=== PATIENT | female | born 1980 | race Caucasian/White ===

== ENCOUNTER 2017-05-05 01:17 | Emergency (ER) | payer OTHER ==
[~2017-05-05] VITALS: Ht 172.7 cm; Wt 113.5 kg
[~2017-05-05 01:17] MED LIST: DIPH25 PO; DSS100 PO; HALO5TAB23 PO; HYDR-3965 PO; LURA40 PO
[2017-05-05 02:48] VITALS: BP 144/70
[2017-05-05] MEDS ORDERED: BACITRACIN 0.9 GM PACKET OINTMENT TP ONE (03:00)
[2017-05-05] MEDS ORDERED: ACETAMINOPHEN 500 MG TABLET PO ONE (03:00)
== END 2017-05-05 03:30 | disposition home or self-care (01) ==
LOC: EMS 01:18
DX: S90.821A Blister (nonthermal), right foot, initial encounter (principal); I10 Essential (primary) hypertension; F17.200 Nicotine dependence, unspecified, uncomplicated; Z59.0 Homelessness; X58.XXXA Exposure to other specified factors, initial encounter; Y93.01 Activity, walking, marching and hiking; Y92.89 Other specified places as the place of occurrence of the external cause; Y99.8 Other external cause status
CPT/HCPCS: 99283; 99406

== ENCOUNTER 2017-06-12 19:33 | Emergency (ER) | payer OTHER ==
[~2017-06-12] VITALS: Ht 172.7 cm; Wt 112.0 kg
[~2017-06-12 19:33] MED LIST changes: -DIPH25 PO; -DSS100 PO; -HYDR-3965 PO
[2017-06-12] MEDS ORDERED: TRAZ-144 PO (19:43)
[2017-06-12] MEDS ORDERED: QUET25TA PO (19:43)
[2017-06-12] MEDS ORDERED: LORA0.5T2 PO (19:43)
[2017-06-12] MEDS ORDERED: LITH300T PO (19:43)
[2017-06-12 20:00] LABS: BASOPHILS % (AUTO) 0.5 % (0.0-2.0); EOSINOPHILS % (AUTO) 1.3 % (1.0-6.0); HEMATOCRIT 36.9 % (36-46); HEMOGLOBIN 12.5 g/dL (12.0-16.0); LYMPHOCYTES # (AUTO) 3.2 K/uL (1.0-4.8); LYMPHOCYTES % (AUTO) 26.7 % (22.0-44.0); MEAN CORPUSCULAR HEMOGLOBIN 29.6 pg (26.0-34.0); MEAN CORPUSCULAR HGB CONC 33.9 G/dL (31.0-37.0); MEAN CORPUSCULAR VOLUME 87 fL (80-100); MONOCYTES # (AUTO) 0.5 K/uL (0.1-1.0); MONOCYTES % (AUTO) 4.3 % (2.0-9.0); NEUTROPHILS # (AUTO) 8.2 K/uL (1.8-7.7); NEUTROPHILS % (AUTO) 67.2 % (40.0-70.0); PLATELET COUNT (AUTO) 255 K/uL (150-450); RED BLOOD CELL COUNT(AUTO) 4.23 MIL/uL (4.00-5.20); RED CELL DISTRIBUTION WIDTH 13.6 % (11.5-14.5)
[2017-06-12 20:15] LABS: ANION GAP 8 mmol/L (8-16); CALCIUM, TOTAL 8.9 mg/dL (8.8-10.5); CARBON DIOXIDE 26 mmol/L (22-29); CHLORIDE 100 mmol/L (98-107); CREATININE 0.93 mg/dL (0.60-1.30); GLOMERULAR FILTR. RATE CALC > 60 mL/min (>60); GLUCOSE,RANDOM 88 mg/dL (70-110); POTASSIUM 3.3 mmol/L (3.5-5.1); SODIUM SERUM 134 mmol/L (136-145); UREA NITROGEN, BLOOD 7 mg/dL (7-18)
[2017-06-12 20:20] LABS: ALANINE AMINOTRANSFERASE 48 U/L (12-78); ALBUMIN 3.7 g/dL (3.4-5.0); ALKALINE PHOSPHATASE 117 U/L (46-116); ASPARTATE AMINOTRANSFERASE 29 U/L (15-37); BILIRUBIN,TOTAL 0.4 mg/dL (0.1-1.0); TOTAL PROTEIN, SERUM 7.7 g/dL (6.4-8.2)
[2017-06-12 21:50] VITALS: BP 129/72
== END 2017-06-12 22:03 | disposition home or self-care (01) ==
LOC: EMS 19:34
DX: F25.9 Schizoaffective disorder, unspecified (principal); Z59.0 Homelessness
CPT/HCPCS: 36415; 80053; 80178; 84703; 85025; 99284; G0480

== ENCOUNTER 2018-10-01 14:20 | Emergency (ER) | payer OTHER ==
[~2018-10-01 14:20] MED LIST changes: -HALO5TAB23 PO; +LITH300T PO; +LORA0.5T2 PO; -LURA40 PO; +QUET25TA PO; +TRAZ-252 PO
[2018-10-01] MEDS ORDERED: TRAZ-220 PO (14:53)
[2018-10-01] MEDS ORDERED: QUET300T2 PO (14:53)
[2018-10-01] MEDS ORDERED: PALI3 PO (14:53)
[2018-10-01 14:59] LABS: BASOPHILS % (AUTO) 0.4 % (0.0-2.0); EOSINOPHILS % (AUTO) 3.1 % (1.0-6.0); HEMATOCRIT 38.6 % (36-46); HEMOGLOBIN 12.9 g/dL (12.0-16.0); LYMPHOCYTES # (AUTO) 2.2 K/uL (1.0-4.8); LYMPHOCYTES % (AUTO) 25.3 % (22.0-44.0); MEAN CORPUSCULAR HEMOGLOBIN 29.4 pg (26.0-34.0); MEAN CORPUSCULAR HGB CONC 33.4 G/dL (31.0-37.0); MEAN CORPUSCULAR VOLUME 88 fL (80-100); MONOCYTES # (AUTO) 0.4 K/uL (0.1-1.0); MONOCYTES % (AUTO) 4.7 % (2.0-9.0); NEUTROPHILS # (AUTO) 5.8 K/uL (1.8-7.7); NEUTROPHILS % (AUTO) 66.5 % (40.0-70.0); PLATELET COUNT (AUTO) 243 K/uL (150-450); RED BLOOD CELL COUNT(AUTO) 4.39 MIL/uL (4.00-5.20); RED CELL DISTRIBUTION WIDTH 13.4 % (11.5-14.5)
[2018-10-01 15:16] LABS: AMPHET/METH SCREEN,URINE NEGATIVE (NEGATIVE); BARBITURATE SCREEN, URINE NEGATIVE (NEGATIVE); BENZODIAZEPINES SCREEN,URINE NEGATIVE (NEGATIVE); CANNABINOID SCREEN,URINE NEGATIVE (NEGATIVE); COCAINE SCREEN,URINE NEGATIVE (NEGATIVE); METHADONE SCREEN, URINE NEGATIVE (NEGATIVE); OPIATE SCREEN,URINE NEGATIVE (NEGATIVE)
[2018-10-01 15:19] LABS: ANION GAP 8 mmol/L (8-16); CALCIUM, TOTAL 8.9 mg/dL (8.8-10.5); CARBON DIOXIDE 27 mmol/L (22-29); CHLORIDE 103 mmol/L (98-107); CREATININE 0.81 mg/dL (0.60-1.30); GLOMERULAR FILTR. RATE CALC > 60 mL/min (>60); GLUCOSE,RANDOM 94 mg/dL (70-110); POTASSIUM 3.5 mmol/L (3.5-5.1); SODIUM SERUM 138 mmol/L (136-145); UREA NITROGEN, BLOOD 7 mg/dL (7-18)
[2018-10-01 15:24] LABS: PHENCYCLIDINE SCREEN,URINE NEGATIVE (NEGATIVE)
[2018-10-01 15:29] LABS: ALANINE AMINOTRANSFERASE 28 U/L (12-78); ALBUMIN 3.4 g/dL (3.4-5.0); ALKALINE PHOSPHATASE 107 U/L (46-116); ASPARTATE AMINOTRANSFERASE 25 U/L (15-37); BILIRUBIN,TOTAL 0.3 mg/dL (0.1-1.0); HCG,QUANTITATIVE < 1 mIU/mL (0-6); TOTAL PROTEIN, SERUM 7.7 g/dL (6.4-8.2)
[2018-10-01 15:56] LABS: LITHIUM 0.36 mmol/L (0.60-1.20)
[2018-10-01 16:26] VITALS: BP 132/74
== END 2018-10-01 16:31 | disposition home or self-care (01) ==
LOC: EMS 14:28
DX: F25.9 Schizoaffective disorder, unspecified (principal); F31.9 Bipolar disorder, unspecified; F17.290 Nicotine dependence, other tobacco product, uncomplicated; Z59.0 Homelessness; Z79.899 Other long term (current) drug therapy
CPT/HCPCS: 36415; 80053; 80178; 80307; 81025; 84702; 85025; 99283; 99406; G0480

== ENCOUNTER 2018-10-03 21:22 | Emergency (ER) | payer OTHER ==
[~2018-10-03] VITALS: Ht 172.7 cm; Wt 111.4 kg
[~2018-10-03 21:22] MED LIST changes: -LORA0.5T2 PO; +PALI3 PO; -QUET25TA PO; +QUET300T2 PO; +TRAZ-220 PO; -TRAZ-252 PO
[2018-10-03 22:14] LABS: ANION GAP 9 mmol/L (8-16); CARBON DIOXIDE 25 mmol/L (22-29); CHLORIDE 103 mmol/L (98-107); GLOMERULAR FILTR. RATE CALC > 60 mL/min (>60); GLUCOSE,RANDOM 94 mg/dL (70-110); POTASSIUM 3.5 mmol/L (3.5-5.1); SODIUM SERUM 137 mmol/L (136-145); UREA NITROGEN, BLOOD 9 mg/dL (7-18)
[2018-10-03] MEDS ORDERED: HALOPERIDOL LACTATE 5 MG/ML VIAL IM ONE (22:15)
[2018-10-03] MEDS ORDERED: DiphenhydrAMINE HCL 50 MG/ML VIAL IM ONE (22:15)
[2018-10-03] MEDS ORDERED: LORazepam 2 MG/ML VIAL IM ONE (22:15)
[2018-10-03 22:16] LABS: BASOPHILS % (AUTO) 0.4 % (0.0-2.0); EOSINOPHILS % (AUTO) 2.1 % (1.0-6.0); HEMATOCRIT 36.5 % (36-46); HEMOGLOBIN 12.2 g/dL (12.0-16.0); LYMPHOCYTES # (AUTO) 2.4 K/uL (1.0-4.8); LYMPHOCYTES % (AUTO) 31.5 % (22.0-44.0); MEAN CORPUSCULAR HEMOGLOBIN 28.8 pg (26.0-34.0); MEAN CORPUSCULAR HGB CONC 33.4 G/dL (31.0-37.0); MEAN CORPUSCULAR VOLUME 86 fL (80-100); MONOCYTES # (AUTO) 0.4 K/uL (0.1-1.0); MONOCYTES % (AUTO) 5.5 % (2.0-9.0); NEUTROPHILS # (AUTO) 4.7 K/uL (1.8-7.7); NEUTROPHILS % (AUTO) 60.5 % (40.0-70.0); PLATELET COUNT (AUTO) 265 K/uL (150-450); RED BLOOD CELL COUNT(AUTO) 4.23 MIL/uL (4.00-5.20); RED CELL DISTRIBUTION WIDTH 13.4 % (11.5-14.5)
[2018-10-03 22:18] LABS: ALANINE AMINOTRANSFERASE 26 U/L (12-78); ALBUMIN 3.4 g/dL (3.4-5.0); ALKALINE PHOSPHATASE 95 U/L (46-116); ASPARTATE AMINOTRANSFERASE 23 U/L (15-37); BILIRUBIN,TOTAL 0.5 mg/dL (0.1-1.0); TOTAL PROTEIN, SERUM 7.3 g/dL (6.4-8.2)
[2018-10-03 22:45] LABS: AMPHET/METH SCREEN,URINE POSITIVE (NEGATIVE); BARBITURATE SCREEN, URINE NEGATIVE (NEGATIVE); BENZODIAZEPINES SCREEN,URINE NEGATIVE (NEGATIVE); CANNABINOID SCREEN,URINE NEGATIVE (NEGATIVE); COCAINE SCREEN,URINE NEGATIVE (NEGATIVE); METHADONE SCREEN, URINE NEGATIVE (NEGATIVE); OPIATE SCREEN,URINE NEGATIVE (NEGATIVE); PHENCYCLIDINE SCREEN,URINE NEGATIVE (NEGATIVE)
[2018-10-03 22:51] LABS: LITHIUM 1.03 mmol/L (0.60-1.20)
[2018-10-03 23:46] VITALS: BP 127/78
== END 2018-10-03 23:50 | disposition home or self-care (01) ==
LOC: EMS 21:22
DX: F25.0 Schizoaffective disorder, bipolar type (principal); F15.10 Other stimulant abuse, uncomplicated; Z79.899 Other long term (current) drug therapy
CPT/HCPCS: 36415; 80053; 80178; 80307; 85025; 96372; 99284; G0480; J1200; J1630; J2060

== ENCOUNTER 2018-10-12 02:20 | Emergency (ER) | payer OTHER ==
[~2018-10-12] VITALS: Ht 172.7 cm; Wt 115.9 kg
[2018-10-12 04:18] VITALS: BP 135/77
== END 2018-10-12 04:32 | disposition home or self-care (01) ==
LOC: EMS 02:23
DX: S96.912A Strain of unspecified muscle and tendon at ankle and foot level, left foot, initial encounter (principal); F31.9 Bipolar disorder, unspecified; F20.9 Schizophrenia, unspecified; F17.200 Nicotine dependence, unspecified, uncomplicated; Z59.0 Homelessness; X58.XXXA Exposure to other specified factors, initial encounter; Y93.89 Activity, other specified; Y92.89 Other specified places as the place of occurrence of the external cause; Y99.8 Other external cause status

== ENCOUNTER 2018-10-19 17:03 | Emergency (ER) | payer OTHER ==
[~2018-10-19] VITALS: Ht 172.7 cm; Wt 117.3 kg
[2018-10-19 18:11] LABS: BASOPHILS % (AUTO) 0.5 % (0.0-2.0); EOSINOPHILS % (AUTO) 1.6 % (1.0-6.0); HEMATOCRIT 37.5 % (36-46); HEMOGLOBIN 12.6 g/dL (12.0-16.0); LYMPHOCYTES # (AUTO) 3.3 K/uL (1.0-4.8); LYMPHOCYTES % (AUTO) 34.8 % (22.0-44.0); MEAN CORPUSCULAR HEMOGLOBIN 29.6 pg (26.0-34.0); MEAN CORPUSCULAR HGB CONC 33.5 G/dL (31.0-37.0); MEAN CORPUSCULAR VOLUME 88 fL (80-100); MONOCYTES # (AUTO) 0.5 K/uL (0.1-1.0); MONOCYTES % (AUTO) 4.9 % (2.0-9.0); NEUTROPHILS # (AUTO) 5.5 K/uL (1.8-7.7); NEUTROPHILS % (AUTO) 58.2 % (40.0-70.0); PLATELET COUNT (AUTO) 242 K/uL (150-450); RED BLOOD CELL COUNT(AUTO) 4.25 MIL/uL (4.00-5.20); RED CELL DISTRIBUTION WIDTH 13.3 % (11.5-14.5)
[2018-10-19 18:21] LABS: ANION GAP 8 mmol/L (8-16); CALCIUM, TOTAL 8.8 mg/dL (8.8-10.5); CARBON DIOXIDE 26 mmol/L (22-29); CHLORIDE 103 mmol/L (98-107); CREATININE 0.79 mg/dL (0.60-1.30); GLOMERULAR FILTR. RATE CALC > 60 mL/min (>60); GLUCOSE,RANDOM 72 mg/dL (70-110); POTASSIUM 3.4 mmol/L (3.5-5.1); SODIUM SERUM 137 mmol/L (136-145); UREA NITROGEN, BLOOD 6 mg/dL (7-18)
[2018-10-19 18:30] LABS: ALANINE AMINOTRANSFERASE 41 U/L (12-78); ALBUMIN 3.5 g/dL (3.4-5.0); ALKALINE PHOSPHATASE 104 U/L (46-116); ASPARTATE AMINOTRANSFERASE 29 U/L (15-37); BILIRUBIN,TOTAL 0.3 mg/dL (0.1-1.0); TOTAL PROTEIN, SERUM 7.3 g/dL (6.4-8.2)
[2018-10-19 18:31] LABS: LITHIUM < 0.20 mmol/L (0.60-1.20)
[2018-10-19 18:42] LABS: AMPHET/METH SCREEN,URINE NEGATIVE (NEGATIVE); BARBITURATE SCREEN, URINE NEGATIVE (NEGATIVE); BENZODIAZEPINES SCREEN,URINE NEGATIVE (NEGATIVE); CANNABINOID SCREEN,URINE POSITIVE (NEGATIVE); COCAINE SCREEN,URINE NEGATIVE (NEGATIVE); METHADONE SCREEN, URINE NEGATIVE (NEGATIVE); OPIATE SCREEN,URINE NEGATIVE (NEGATIVE)
[2018-10-19 18:50] VITALS: BP 135/86
[2018-10-19 18:54] LABS: PHENCYCLIDINE SCREEN,URINE NEGATIVE (NEGATIVE)
== END 2018-10-19 20:15 | disposition home or self-care (01) ==
LOC: EMS 17:04
DX: F25.9 Schizoaffective disorder, unspecified (principal); F31.9 Bipolar disorder, unspecified; F20.9 Schizophrenia, unspecified; Z59.0 Homelessness; Z79.899 Other long term (current) drug therapy
CPT/HCPCS: 36415; 80053; 80178; 80307; 85025; 99284; G0480

== ENCOUNTER 2018-10-20 09:44 | Emergency (ER) | payer OTHER ==
[~2018-10-20] VITALS: Ht 172.7 cm; Wt 117.3 kg
[2018-10-20 10:17] LABS: AMPHET/METH SCREEN,URINE POSITIVE (NEGATIVE); BARBITURATE SCREEN, URINE NEGATIVE (NEGATIVE); BENZODIAZEPINES SCREEN,URINE NEGATIVE (NEGATIVE); CANNABINOID SCREEN,URINE POSITIVE (NEGATIVE); COCAINE SCREEN,URINE NEGATIVE (NEGATIVE); METHADONE SCREEN, URINE NEGATIVE (NEGATIVE); OPIATE SCREEN,URINE NEGATIVE (NEGATIVE); PHENCYCLIDINE SCREEN,URINE NEGATIVE (NEGATIVE)
[2018-10-20 11:30] VITALS: BP 128/76
== END 2018-10-20 11:33 | disposition home or self-care (01) ==
LOC: EMS 09:46
DX: F25.9 Schizoaffective disorder, unspecified (principal); F31.9 Bipolar disorder, unspecified; Z79.899 Other long term (current) drug therapy

== ENCOUNTER 2018-12-22 08:37 | Inpatient (IN) | payer MEDICAID, OTHER ==
[~2018-12-22] VITALS: Ht 172.7 cm; Wt 108.0 kg
[~2018-12-22 08:37] MED LIST changes: -TRAZ-220 PO
[2018-12-22 10:35] LABS: BASOPHILS % (AUTO) 0.3 % (0.0-2.0); EOSINOPHILS % (AUTO) 2.1 % (1.0-6.0); HEMATOCRIT 40.2 % (36-46); HEMOGLOBIN 13.3 g/dL (12.0-16.0); LYMPHOCYTES # (AUTO) 2.7 K/uL (1.0-4.8); LYMPHOCYTES % (AUTO) 27.4 % (22.0-44.0); MEAN CORPUSCULAR HGB CONC 33.1 G/dL (31.0-37.0); MEAN CORPUSCULAR VOLUME 88 fL (80-100); MONOCYTES # (AUTO) 0.6 K/uL (0.1-1.0); MONOCYTES % (AUTO) 5.8 % (2.0-9.0); NEUTROPHILS # (AUTO) 6.3 K/uL (1.8-7.7); NEUTROPHILS % (AUTO) 64.4 % (40.0-70.0); PLATELET COUNT (AUTO) 251 K/uL (150-450); RED BLOOD CELL COUNT(AUTO) 4.59 MIL/uL (4.00-5.20); RED CELL DISTRIBUTION WIDTH 14.1 % (11.5-14.5)
[2018-12-22] MEDS ORDERED: LORazepam 2 MG TABLET PO ONE (10:45)
[2018-12-22 10:47] LABS: ANION GAP 13 mmol/L (8-16); CALCIUM, TOTAL 9.5 mg/dL (8.8-10.5); CARBON DIOXIDE 23 mmol/L (22-29); CHLORIDE 103 mmol/L (98-107); CREATININE 0.73 mg/dL (0.60-1.30); GLOMERULAR FILTR. RATE CALC > 60 mL/min (>60); GLUCOSE,RANDOM 86 mg/dL (70-110); POTASSIUM 3.9 mmol/L (3.5-5.1); SODIUM SERUM 139 mmol/L (136-145); UREA NITROGEN, BLOOD 8 mg/dL (7-18)
[2018-12-22] MEDS ORDERED: LORazepam 2 MG TABLET PO PRN (11:00)
[2018-12-22] MEDS ORDERED: ZOLPIDEM TARTRATE 10 MG TABLET PO PRN (11:00)
[2018-12-22] MEDS ORDERED: HALOPERIDOL 5 MG TABLET PO PRN (11:00)
[2018-12-22 11:01] LABS: AMPHET/METH SCREEN,URINE POSITIVE (NEGATIVE); BARBITURATE SCREEN, URINE NEGATIVE (NEGATIVE); BENZODIAZEPINES SCREEN,URINE NEGATIVE (NEGATIVE); CANNABINOID SCREEN,URINE POSITIVE (NEGATIVE); COCAINE SCREEN,URINE NEGATIVE (NEGATIVE); METHADONE SCREEN, URINE NEGATIVE (NEGATIVE); OPIATE SCREEN,URINE NEGATIVE (NEGATIVE); PHENCYCLIDINE SCREEN,URINE NEGATIVE (NEGATIVE)
[2018-12-22 11:09] LABS: APPEARANCE,URINE CLOUDY (CLEAR); BILIRUBIN,URINE NEGATIVE (NEGATIVE); GLUCOSE, URINE (UA) NEGATIVE (NEGATIVE); KETONES,URINE TRACE mg/dL (NEGATIVE); LEUKOCYTE ESTERASE ,URINE NEGATIVE (NEGATIVE); NITRATE,URINE NEGATIVE (NEGATIVE); OCCULT BLOOD,URINE NEGATIVE (NEGATIVE); PROTEIN,URINE NEGATIVE (NEGATIVE)
[2018-12-22 11:11] LABS: ALANINE AMINOTRANSFERASE 69 U/L (12-78); ALBUMIN 3.8 g/dL (3.4-5.0); ALKALINE PHOSPHATASE 106 U/L (46-116); ASPARTATE AMINOTRANSFERASE 44 U/L (15-37); BILIRUBIN,TOTAL 0.7 mg/dL (0.1-1.0); CREATINE KINASE, TOTAL ONLY 114 U/L (26-192); TOTAL PROTEIN, SERUM 7.7 g/dL (6.4-8.2)
[2018-12-22 11:24] LABS: BACTERIA,URINE Rare /HPF (None Seen); RBC,URINE 0-2 /HPF (0-2); SQUAMOUS EPITHELIAL CELL,UR Few /LPF (None Seen); WBC,URINE 0-2 /HPF (0-5)
[2018-12-22] MEDS ORDERED: LORazepam 2 MG/ML VIAL IM ONE (12:15)
[2018-12-22] MEDS ORDERED: HALOPERIDOL LACTATE 5 MG/ML VIAL IM ONE (12:15)
[2018-12-22] MEDS ORDERED: ACETAMINOPHEN 325 MG TABLET PO PRN ×2 (13:00→16:15)
[2018-12-22] MEDS ORDERED: 0.9% SODIUM CHLORIDE 10 ML SYRINGE IVP PRN (13:00)
[2018-12-22] MEDS ORDERED: LOPERAMIDE HCL 2 MG CAPSULE PO PRN (16:15)
[2018-12-22] MEDS ORDERED: MAGNESIUM HYDROXIDE SUSPENSION 30 ML UDCUP PO PRN (16:15)
[2018-12-22] MEDS ORDERED: MAG HYDROX/AL HYDROX/SIMETH ES 30 ML SUSPENSION UDCUP PO PRN (16:15)
[2018-12-22] MEDS ORDERED: PETROLATUM,WHITE 28 GM JELLY TP PRN (16:15)
[2018-12-22] MEDS ORDERED: GuaiFENesin/D-METHORPHAN [SUGAR-FREE] 200-20MG/10 ML SYRUP UDCUP PO PRN (16:15)
[2018-12-22] MEDS ORDERED: CloNIDine HCL 0.1 MG TABLET PO PRN (16:15)
[2018-12-22] MEDS ORDERED: DOCUSATE SODIUM 100 MG CAPSULE PO PRN (16:15)
[2018-12-22] MEDS ORDERED: ONDANSETRON HCL 4 MG TABLET PO PRN (16:15)
[2018-12-22] MEDS ORDERED: ALBUTEROL SULFATE HFA 90 MCG/PUFF 8 GM INHALER IH PRN (16:15)
[2018-12-22] MEDS ORDERED: IBUPROFEN 400 MG TABLET PO PRN (16:15)
[2018-12-22] MEDS ORDERED: NICOTINE 14 MG/24 HOUR PATCH TD PRN (16:15)
[2018-12-22] MEDS: PALIPERIDONE 6 MG ER TABLET PO SCH (21:50)
[2018-12-22] MEDS: LITHIUM CARBONATE 300 MG CAPSULE PO SCH (21:50)
[2018-12-23 06:50] LABS: THYROID STIMULATING HORMONE 2.31 uIU/mL (0.36-3.74)
[2018-12-23] MEDS: LITHIUM CARBONATE 300 MG CAPSULE PO SCH ×2 (11:08→17:58)
[2018-12-23] MEDS ORDERED: DiphenhydrAMINE HCL 25 MG CAPSULE PO ONE (13:45)
[2018-12-23 16:19] VITALS: BP 135/81
[2018-12-23] MEDS: ALOE VERA 100% 360 ML GEL TP SCH (17:58)
[2018-12-23] MEDS: PALIPERIDONE 6 MG ER TABLET PO SCH (21:16)
[2018-12-24] MEDS: LITHIUM CARBONATE 300 MG CAPSULE PO SCH ×2 (08:45→17:46)
[2018-12-24] MEDS: ALOE VERA 100% 360 ML GEL TP SCH ×2 (08:45→17:00)
[2018-12-24 08:50] VITALS: BP 130/89
[2018-12-24 16:36] VITALS: BP 142/86
[2018-12-24] MEDS: PALIPERIDONE 6 MG ER TABLET PO SCH (20:36)
[2018-12-25] MEDS: ALOE VERA 100% 360 ML GEL TP SCH ×2 (07:43→16:47)
[2018-12-25] MEDS: LITHIUM CARBONATE 300 MG CAPSULE PO SCH ×2 (07:44→16:47)
[2018-12-25 08:00] VITALS: BP 123/60
[2018-12-25 17:03] VITALS: BP 123/72
[2018-12-25] MEDS ORDERED: RisperiDONE MICROSPHERES 37.5 MG/2 ML SYRINGE IM SCH (18:00)
[2018-12-25] MEDS: PALIPERIDONE 6 MG ER TABLET PO SCH (20:34)
[2018-12-26 08:00] VITALS: BP 129/79
[2018-12-26] MEDS: LITHIUM CARBONATE 300 MG CAPSULE PO SCH ×2 (08:37→16:28)
[2018-12-26] MEDS: ALOE VERA 100% 360 ML GEL TP SCH ×2 (08:37→16:28)
[2018-12-26 16:43] VITALS: BP 130/81
[2018-12-26] MEDS: PALIPERIDONE 6 MG ER TABLET PO SCH (21:16)
[2018-12-27 09:22] VITALS: BP 166/101
[2018-12-27] MEDS: ALOE VERA 100% 360 ML GEL TP SCH (09:52)
[2018-12-27] MEDS: LITHIUM CARBONATE 300 MG CAPSULE PO SCH (09:52)
[2018-12-27] MEDS ORDERED: RISPC375 IM (10:45)
== END 2018-12-27 11:30 | disposition home or self-care (01) | DRG 750 ==
LOC: EMS 08:39 → 3EC 12-23 08:10 → EMS 12-23 08:34
PROVIDERS: ADMIT Psychiatry & Neurology Psychiatry; ATTEND Psychiatry & Neurology Psychiatry
DX: F25.0 Schizoaffective disorder, bipolar type (principal); R74.0 Nonspecific elevation of levels of transaminase and lactic acid dehydrogenase [LDH]; B19.20 Unspecified viral hepatitis C without hepatic coma; F19.10 Other psychoactive substance abuse, uncomplicated; L55.9 Sunburn, unspecified; F41.9 Anxiety disorder, unspecified; R45.87 Impulsiveness; Z91.19 Patient's noncompliance with other medical treatment and regimen
CPT/HCPCS: 84443; 93005; 96372; G0480; J1630; J2060; J2794

== ENCOUNTER 2020-02-19 09:54 | Inpatient (IN) | payer MEDICAID ==
[~2020-02-19] VITALS: Ht 172.7 cm; Wt 93.6 kg
[~2020-02-19 09:54] MED LIST changes: -PALI3 PO; +PALI3TAB14 PO; -QUET300T2 PO; +RISPC375 IM
[2020-02-19] MEDS ORDERED: HALOPERIDOL 5 MG TABLET PO PRN (10:15)
[2020-02-19] MEDS ORDERED: ZOLPIDEM TARTRATE 10 MG TABLET PO PRN (10:15)
[2020-02-19] MEDS ORDERED: PNEUMOCOCCAL VACCINE POLYVALENT 0.5 ML VIAL [PPSV23] IM ONE (15:00)
[2020-02-19] MEDS ORDERED: INFLUENZA VIRUS VACCINE QVS 2020-21 (6MO+)/PF 60 MCG/0.5 ML SYRINGE IM ONE (15:00)
[2020-02-19 16:03] VITALS: BP 137/90
[2020-02-20 00:30] VITALS: BP 132/83
[2020-02-20] MEDS ORDERED: BENZOCAINE/MENTHOL LOZENGE PO PRN (07:30)
[2020-02-20] MEDS ORDERED: OMEPRAZOLE 20 MG CAPSULE PO PRN (07:30)
[2020-02-20] MEDS ORDERED: MAGNESIUM HYDROXIDE SUSPENSION 30 ML UDCUP PO PRN (07:30)
[2020-02-20] MEDS ORDERED: DOCUSATE SODIUM 100 MG CAPSULE PO PRN (07:30)
[2020-02-20] MEDS ORDERED: LOPERAMIDE HCL 2 MG CAPSULE PO PRN (07:30)
[2020-02-20] MEDS ORDERED: BACITRACIN 28 GM OINTMENT TP PRN (07:30)
[2020-02-20] MEDS ORDERED: ONDANSETRON HCL 4 MG TABLET PO PRN (07:30)
[2020-02-20] MEDS ORDERED: MAG HYDROX/AL HYDROX/SIMETH ES 30 ML SUSPENSION UDCUP PO PRN (07:30)
[2020-02-20] MEDS ORDERED: IBUPROFEN 600 MG TABLET PO PRN (07:30)
[2020-02-20] MEDS ORDERED: ALBUTEROL SULFATE HFA 90 MCG/PUFF 8 GM INHALER IH PRN (07:30)
[2020-02-20] MEDS ORDERED: CloNIDine HCL 0.1 MG TABLET PO PRN (07:30)
[2020-02-20] MEDS ORDERED: PETROLATUM,WHITE 28 GM JELLY TP PRN (07:30)
[2020-02-20 08:04] VITALS: BP 124/63
[2020-02-20 08:18] LABS: BASOPHILS % (AUTO) 0.2 % (0.0-2.0); EOSINOPHILS % (AUTO) 2.7 % (1.0-6.0); HEMATOCRIT 39.5 % (36-46); HEMOGLOBIN 13.6 g/dL (12.0-16.0); LYMPHOCYTES # (AUTO) 2.6 K/uL (1.0-4.8); LYMPHOCYTES % (AUTO) 41.4 % (22.0-44.0); MEAN CORPUSCULAR HEMOGLOBIN 32.2 pg (26.0-34.0); MEAN CORPUSCULAR HGB CONC 34.5 G/dL (31.0-37.0); MEAN CORPUSCULAR VOLUME 93 fL (80-100); MONOCYTES # (AUTO) 0.4 K/uL (0.1-1.0); MONOCYTES % (AUTO) 5.9 % (2.0-9.0); NEUTROPHILS # (AUTO) 3.1 K/uL (1.8-7.7); NEUTROPHILS % (AUTO) 49.8 % (40.0-70.0); PLATELET COUNT (AUTO) 139 K/uL (150-450); RED BLOOD CELL COUNT(AUTO) 4.23 MIL/uL (4.00-5.20); RED CELL DISTRIBUTION WIDTH 11.9 % (11.5-14.5)
[2020-02-20 08:36] LABS: HEMOGLOBIN A1C 4.8 % (3.8-5.6)
[2020-02-20 08:49] LABS: ALANINE AMINOTRANSFERASE 26 U/L (12-78); ALBUMIN 3.6 g/dL (3.4-5.0); ALKALINE PHOSPHATASE 55 U/L (46-116); ANION GAP 9 mmol/L (8-16); ASPARTATE AMINOTRANSFERASE 31 U/L (15-37); BILIRUBIN,TOTAL 0.4 mg/dL (0.1-1.0); CALCIUM, TOTAL 8.7 mg/dL (8.8-10.5); CARBON DIOXIDE 26 mmol/L (22-29); CHLORIDE 103 mmol/L (98-107); CHOL/HDL RATIO 3.2 (3.9-5.7); CHOLESTEROL 171 mg/dL (131-200); CREATININE 0.66 mg/dL (0.60-1.30); FREE T4 (FREE THYROXINE) 1.23 ng/dL (0.76-1.46); GLOMERULAR FILTR. RATE CALC > 60 mL/min (>60); GLUCOSE,RANDOM 93 mg/dL (70-110); HCG,QUANTITATIVE < 1 mIU/mL (0-6); HDL CHOLESTEROL 54 mg/dL (40-60); LDL CHOL (CALC.) 95 mg/dL (0-130); POTASSIUM 3.9 mmol/L (3.5-5.1); SODIUM SERUM 138 mmol/L (136-145); TOTAL PROTEIN, SERUM 6.7 g/dL (6.4-8.2); TRIGLYCERIDES 110 mg/dL (15-150); UREA NITROGEN, BLOOD 7 mg/dL (7-18)
[2020-02-20] MEDS: NICOTINE POLACRILEX 2 MG LOZENGE PO PRN ×3 (09:13→18:23)
[2020-02-20] MEDS: BACITRACIN 28 GM OINTMENT TP SCH ×2 (09:14→17:37)
[2020-02-20] MEDS: LORazepam 2 MG TABLET PO PRN (10:30)
[2020-02-20 16:28] VITALS: BP 112/71
[2020-02-20] MEDS: RisperiDONE 3 MG TABLET PO SCH (17:37)
[2020-02-21 00:53] VITALS: BP 119/74
[2020-02-21] MEDS: NICOTINE POLACRILEX 2 MG LOZENGE PO PRN ×4 (04:11→18:11)
[2020-02-21] MEDS: BACITRACIN 28 GM OINTMENT TP SCH ×2 (08:07→16:01)
[2020-02-21] MEDS: RisperiDONE 3 MG TABLET PO SCH ×2 (08:07→16:00)
[2020-02-21 08:16] VITALS: BP 143/92
[2020-02-21] MEDS: LORazepam 2 MG TABLET PO PRN (16:00)
[2020-02-21 16:07] VITALS: BP 138/79
[2020-02-22 04:13] VITALS: BP 115/91
[2020-02-22] MEDS: NICOTINE POLACRILEX 2 MG LOZENGE PO PRN ×4 (05:39→18:20)
[2020-02-22] MEDS: RisperiDONE 3 MG TABLET PO SCH ×2 (08:01→16:11)
[2020-02-22] MEDS: LORazepam 2 MG TABLET PO PRN (08:01)
[2020-02-22] MEDS: BACITRACIN 28 GM OINTMENT TP SCH ×2 (08:03→16:11)
[2020-02-22 08:34] VITALS: BP 114/64
[2020-02-22 16:09] VITALS: BP 108/66
[2020-02-23 00:12] VITALS: BP 113/64
[2020-02-23] MEDS: NICOTINE POLACRILEX 2 MG LOZENGE PO PRN ×3 (06:37→14:55)
[2020-02-23] MEDS: RisperiDONE 3 MG TABLET PO SCH ×2 (08:08→16:13)
[2020-02-23 08:14] VITALS: BP 116/78
[2020-02-23] MEDS: BACITRACIN 28 GM OINTMENT TP SCH ×2 (09:00→16:15)
[2020-02-23] MEDS: ACETAMINOPHEN 325 MG TABLET PO PRN (13:25)
[2020-02-23 16:25] VITALS: BP 132/67
[2020-02-23] MEDS: LORazepam 2 MG TABLET PO PRN (19:40)
[2020-02-24 00:27] VITALS: BP 121/69
[2020-02-24] MEDS: NICOTINE POLACRILEX 2 MG LOZENGE PO PRN ×3 (04:04→14:24)
[2020-02-24 07:44] VITALS: BP 134/97
[2020-02-24 08:01] VITALS: BP 134/97
[2020-02-24] MEDS: RisperiDONE 3 MG TABLET PO SCH ×2 (08:02→16:12)
[2020-02-24] MEDS: BACITRACIN 28 GM OINTMENT TP SCH ×2 (08:02→16:17)
[2020-02-24] MEDS: LORazepam 2 MG TABLET PO PRN ×2 (08:02→16:12)
[2020-02-24 16:05] VITALS: BP 119/77
[2020-02-25 00:50] VITALS: BP 140/94
[2020-02-25] MEDS: NICOTINE POLACRILEX 2 MG LOZENGE PO PRN ×3 (05:09→16:04)
[2020-02-25 08:01] VITALS: BP 124/75
[2020-02-25] MEDS: BACITRACIN 28 GM OINTMENT TP SCH ×2 (09:00→16:06)
[2020-02-25] MEDS: RisperiDONE 3 MG TABLET PO SCH ×2 (09:00→16:04)
[2020-02-25] MEDS: LORazepam 2 MG TABLET PO PRN ×2 (11:55→16:04)
[2020-02-25 16:05] VITALS: BP 109/79
[2020-02-26 00:04] VITALS: BP 100/58
[2020-02-26] MEDS: NICOTINE POLACRILEX 2 MG LOZENGE PO PRN ×3 (04:15→13:31)
[2020-02-26 08:01] VITALS: BP 139/78
[2020-02-26] MEDS: ACETAMINOPHEN 325 MG TABLET PO PRN (08:32)
[2020-02-26] MEDS: RisperiDONE 3 MG TABLET PO SCH ×2 (08:32→16:27)
[2020-02-26] MEDS: LORazepam 2 MG TABLET PO PRN ×2 (09:08→16:51)
[2020-02-26] MEDS: BACITRACIN 28 GM OINTMENT TP SCH ×2 (09:10→16:27)
[2020-02-26] MEDS ORDERED: TUBERCULIN, PURIFIED PROTEIN DERIVATIVE 5 TU/0.1 ML SYRINGE ID ONE (15:30)
[2020-02-26 16:08] VITALS: BP 121/64
[2020-02-27 00:22] VITALS: BP 106/68
[2020-02-27 03:45] VITALS: BP 140/78
[2020-02-27] MEDS: ACETAMINOPHEN 325 MG TABLET PO PRN (03:45)
[2020-02-27] MEDS: LORazepam 2 MG TABLET PO PRN ×2 (08:17→16:30)
[2020-02-27] MEDS: RisperiDONE 3 MG TABLET PO SCH ×2 (08:17→16:30)
[2020-02-27] MEDS: BACITRACIN 28 GM OINTMENT TP SCH ×2 (08:18→16:31)
[2020-02-27 08:20] VITALS: BP 129/76
[2020-02-27] MEDS: NICOTINE POLACRILEX 2 MG LOZENGE PO PRN ×2 (09:08→13:13)
[2020-02-27 16:00] VITALS: BP 124/80
[2020-02-28] MEDS: LORazepam 2 MG TABLET PO PRN ×3 (00:29→16:40)
[2020-02-28 00:40] VITALS: BP 128/87
[2020-02-28] MEDS: NICOTINE POLACRILEX 2 MG LOZENGE PO PRN ×3 (05:06→14:02)
[2020-02-28] MEDS: ACETAMINOPHEN 325 MG TABLET PO PRN (06:17)
[2020-02-28] MEDS: RisperiDONE 3 MG TABLET PO SCH ×2 (08:08→16:40)
[2020-02-28] MEDS: BACITRACIN 28 GM OINTMENT TP SCH ×2 (08:09→16:41)
[2020-02-28 08:50] VITALS: BP 116/64
[2020-02-28 16:08] VITALS: BP 138/89
[2020-02-29 00:49] VITALS: BP 116/68
[2020-02-29] MEDS ORDERED: RISP3TAB14 PO (01:57)
[2020-02-29] MEDS: NICOTINE POLACRILEX 2 MG LOZENGE PO PRN ×2 (05:29→09:35)
[2020-02-29 07:59] VITALS: BP 126/106
[2020-02-29] MEDS: BACITRACIN 28 GM OINTMENT TP SCH (08:12)
[2020-02-29] MEDS: RisperiDONE 3 MG TABLET PO SCH (08:12)
== END 2020-02-29 11:00 | disposition home or self-care (01) | DRG 750 ==
LOC: B2X 13:36 → B2S 18:39
PROVIDERS: ADMIT Psychiatry & Neurology Psychiatry; ATTEND Psychiatry & Neurology Psychiatry
DX: F25.9 Schizoaffective disorder, unspecified (principal); F41.9 Anxiety disorder, unspecified; F94.0 Selective mutism; G47.00 Insomnia, unspecified; K59.00 Constipation, unspecified; F19.10 Other psychoactive substance abuse, uncomplicated; K75.9 Inflammatory liver disease, unspecified; Z72.0 Tobacco use; Z79.899 Other long term (current) drug therapy
CPT/HCPCS: 83036; 84436; 84439

== ENCOUNTER 2020-04-28 10:43 | Emergency (ER) | payer MEDICAID, OTHER ==
[~2020-04-28 10:43] MED LIST changes: -LITH300T PO; -PALI3TAB14 PO; +RISP3TAB35 PO; -RISPC375 IM
== END 2020-04-28 12:15 | disposition left against medical advice (07) ==
LOC: EMS 10:46
DX: Z00.00 Encounter for general adult medical examination without abnormal findings (principal); Z53.21 Procedure and treatment not carried out due to patient leaving prior to being seen by health care provider

== ENCOUNTER 2020-07-20 13:08 | Emergency (ER) | payer MEDICAID, OTHER ==
[~2020-07-20] VITALS: Ht 172.7 cm; Wt 97.7 kg
[2020-07-20 16:23] LABS: COVID AG,FIA SOURCE NASOPHARYNGEAL
[2020-07-20 16:34] LABS: AMPHET/METH SCREEN,URINE POSITIVE (NEGATIVE); BARBITURATE SCREEN, URINE NEGATIVE (NEGATIVE); BENZODIAZEPINES SCREEN,URINE NEGATIVE (NEGATIVE); CANNABINOID SCREEN,URINE POSITIVE (NEGATIVE); COCAINE SCREEN,URINE NEGATIVE (NEGATIVE); METHADONE SCREEN, URINE NEGATIVE (NEGATIVE); OPIATE SCREEN,URINE NEGATIVE (NEGATIVE)
[2020-07-20 16:37] LABS: PHENCYCLIDINE SCREEN,URINE NEGATIVE (NEGATIVE)
[2020-07-20 17:16] VITALS: BP 106/73
== END 2020-07-20 18:27 | disposition home or self-care (01) ==
LOC: EMS 13:08
DX: F25.9 Schizoaffective disorder, unspecified (principal); F14.10 Cocaine abuse, uncomplicated; F31.9 Bipolar disorder, unspecified; Z20.822 Contact with and (suspected) exposure to COVID-19; Z59.0 Homelessness
CPT/HCPCS: 87426; 99283

== ENCOUNTER 2020-08-09 18:47 | Emergency (ER) | payer MEDICAID ==
[~2020-08-09] VITALS: Ht 172.7 cm; Wt 98.0 kg
[2020-08-09] MEDS ORDERED: QUET100T PO (20:03)
[2020-08-09] MEDS ORDERED: DIVA-112 PO (20:03)
[2020-08-09] MEDS ORDERED: HALO5TAB2 PO (20:03)
[2020-08-09] MEDS ORDERED: QUET300T2 PO (20:03)
[2020-08-09] MEDS ORDERED: LORA-999 PO (20:03)
[2020-08-09] MEDS ORDERED: BENZ2TAB10 PO (20:03)
[2020-08-09 20:15] VITALS: BP 116/82
[2020-08-09] MEDS ORDERED: DIVALPROEX SODIUM 250 MG DR TABLET PO ONE (20:15)
[2020-08-09] MEDS ORDERED: BENZTROPINE MESYLATE 2 MG TABLET PO ONE (20:15)
[2020-08-09] MEDS ORDERED: HALOPERIDOL 5 MG TABLET PO ONE (20:15)
[2020-08-09] MEDS ORDERED: QUEtiapine FUMARATE 100 MG TABLET PO ONE (20:15)
== END 2020-08-09 21:09 | disposition home or self-care (01) ==
LOC: EMS 18:47
DX: F20.9 Schizophrenia, unspecified (principal); F31.9 Bipolar disorder, unspecified; F19.90 Other psychoactive substance use, unspecified, uncomplicated; Z76.0 Encounter for issue of repeat prescription; Z59.0 Homelessness
CPT/HCPCS: 99284; Z7502; Z7610

== ENCOUNTER 2020-09-25 22:23 | Emergency (ER) | payer MEDICAID ==
[~2020-09-25] VITALS: Ht 172.7 cm; Wt 100.0 kg
[~2020-09-25 22:23] MED LIST changes: +BENZ2TAB10 PO; +DIVA-112 PO; +HALO5TAB2 PO; +LORA-999 PO; +QUET100T PO; +QUET300T2 PO; -RISP3TAB35 PO
[2020-09-25 23:09] LABS: BASOPHILS % (AUTO) 0.4 % (0.0-2.0); EOSINOPHILS % (AUTO) 4.6 % (1.0-6.0); HEMATOCRIT 38.6 % (36-46); LYMPHOCYTES # (AUTO) 3.1 K/uL (1.0-4.8); LYMPHOCYTES % (AUTO) 40.8 % (22.0-44.0); MEAN CORPUSCULAR HEMOGLOBIN 30.6 pg (26.0-34.0); MEAN CORPUSCULAR HGB CONC 33.7 G/dL (31.0-37.0); MEAN CORPUSCULAR VOLUME 91 fL (80-100); MONOCYTES # (AUTO) 0.6 K/uL (0.1-1.0); MONOCYTES % (AUTO) 7.3 % (2.0-9.0); NEUTROPHILS # (AUTO) 3.6 K/uL (1.8-7.7); NEUTROPHILS % (AUTO) 46.9 % (40.0-70.0); PLATELET COUNT (AUTO) 184 K/uL (150-450); RED BLOOD CELL COUNT(AUTO) 4.25 MIL/uL (4.00-5.20); RED CELL DISTRIBUTION WIDTH 13.3 % (11.5-14.5)
[2020-09-25 23:25] LABS: ANION GAP 8 mmol/L (8-16); CALCIUM, TOTAL 8.6 mg/dL (8.8-10.5); CARBON DIOXIDE 26 mmol/L (22-29); CHLORIDE 102 mmol/L (98-107); GLOMERULAR FILTR. RATE CALC > 60 mL/min (>60); GLUCOSE,RANDOM 97 mg/dL (70-110); POTASSIUM 3.6 mmol/L (3.5-5.1); SODIUM SERUM 136 mmol/L (136-145); UREA NITROGEN, BLOOD 8 mg/dL (7-18)
[2020-09-25 23:31] LABS: ALANINE AMINOTRANSFERASE 48 U/L (12-78); ALBUMIN 3.6 g/dL (3.4-5.0); ALKALINE PHOSPHATASE 87 U/L (46-116); ASPARTATE AMINOTRANSFERASE 34 U/L (15-37); BILIRUBIN,TOTAL 0.4 mg/dL (0.1-1.0); TOTAL PROTEIN, SERUM 7.1 g/dL (6.4-8.2)
[2020-09-26] MEDS ORDERED: LORazepam 2 MG TABLET PO ONE (03:45)
[2020-09-26 10:35] VITALS: BP 151/85
== END 2020-09-26 10:42 | disposition home or self-care (01) ==
LOC: EMS 22:25
DX: F15.10 Other stimulant abuse, uncomplicated (principal); F20.9 Schizophrenia, unspecified; F31.9 Bipolar disorder, unspecified; Z59.0 Homelessness
CPT/HCPCS: 36415; 80053; 85025; 99285; G0480; 99283

== ENCOUNTER 2020-10-13 03:56 | Emergency (ER) | payer MEDICAID ==
[~2020-10-13] VITALS: Ht 172.7 cm; Wt 100.0 kg
[2020-10-13 04:36] LABS: BASOPHILS % (AUTO) 0.3 % (0.0-2.0); EOSINOPHILS % (AUTO) 1.6 % (1.0-6.0); HEMATOCRIT 39.1 % (36-46); HEMOGLOBIN 13.1 g/dL (12.0-16.0); LYMPHOCYTES # (AUTO) 2.3 K/uL (1.0-4.8); LYMPHOCYTES % (AUTO) 28.6 % (22.0-44.0); MEAN CORPUSCULAR HEMOGLOBIN 30.7 pg (26.0-34.0); MEAN CORPUSCULAR HGB CONC 33.4 G/dL (31.0-37.0); MEAN CORPUSCULAR VOLUME 92 fL (80-100); MONOCYTES # (AUTO) 0.6 K/uL (0.1-1.0); MONOCYTES % (AUTO) 7.8 % (2.0-9.0); NEUTROPHILS # (AUTO) 5.1 K/uL (1.8-7.7); NEUTROPHILS % (AUTO) 61.7 % (40.0-70.0); PLATELET COUNT (AUTO) 172 K/uL (150-450); RED BLOOD CELL COUNT(AUTO) 4.26 MIL/uL (4.00-5.20); RED CELL DISTRIBUTION WIDTH 13.3 % (11.5-14.5)
[2020-10-13 04:47] LABS: ANION GAP 5 mmol/L (8-16); CALCIUM, TOTAL 8.7 mg/dL (8.8-10.5); CARBON DIOXIDE 30 mmol/L (22-29); CHLORIDE 104 mmol/L (98-107); CREATININE 0.74 mg/dL (0.60-1.30); GLOMERULAR FILTR. RATE CALC > 60 mL/min (>60); GLUCOSE,RANDOM 61 mg/dL (70-110); POTASSIUM 4.1 mmol/L (3.5-5.1); SODIUM SERUM 139 mmol/L (136-145); UREA NITROGEN, BLOOD 6 mg/dL (7-18)
[2020-10-13 05:00] LABS: ALANINE AMINOTRANSFERASE 39 U/L (12-78); ALBUMIN 3.3 g/dL (3.4-5.0); ALKALINE PHOSPHATASE 85 U/L (46-116); ASPARTATE AMINOTRANSFERASE 29 U/L (15-37); BILIRUBIN,TOTAL 0.3 mg/dL (0.1-1.0); HCG,QUANTITATIVE < 1 mIU/mL (0-6); TOTAL PROTEIN, SERUM 7.1 g/dL (6.4-8.2)
[2020-10-13 08:52] VITALS: BP 107/65
== END 2020-10-13 09:52 | disposition home or self-care (01) ==
LOC: EMS 03:57
DX: F20.9 Schizophrenia, unspecified (principal); F15.90 Other stimulant use, unspecified, uncomplicated; F31.9 Bipolar disorder, unspecified
CPT/HCPCS: 80053; 84702; 85025; 99284; G0480

== ENCOUNTER 2021-02-12 06:35 | Inpatient (IN) | payer MEDICAID ==
[~2021-02-12] VITALS: Ht 172.7 cm; Wt 89.8 kg
[2021-02-12 12:10] VITALS: BP 147/83
[2021-02-12] MEDS ORDERED: PNEUMOCOCCAL VACCINE POLYVALENT 0.5 ML VIAL [PPSV23] IM. ONE (12:30)
[2021-02-12] MEDS ORDERED: INFLUENZA VIRUS VACCINE QVS 2021-22 (6MO+)/PF 60 MCG/0.5 ML SYRINGE IM. ONE (12:30)
[2021-02-12] MEDS ORDERED: PETROLATUM,WHITE 28 GM JELLY TP PRN (13:30)
[2021-02-12] MEDS ORDERED: GuaiFENesin/D-METHORPHAN [SUGAR-FREE] 200-20MG/10 ML SYRUP UDCUP PO PRN (13:30)
[2021-02-12] MEDS ORDERED: ONDANSETRON HCL 4 MG TABLET PO PRN (13:30)
[2021-02-12] MEDS ORDERED: DOCUSATE SODIUM 100 MG CAPSULE PO PRN (13:30)
[2021-02-12] MEDS ORDERED: MAG HYDROX/AL HYDROX/SIMETH ES 30 ML SUSPENSION UDCUP PO PRN (13:30)
[2021-02-12] MEDS ORDERED: NICOTINE 14 MG/24 HOUR PATCH TD PRN (13:30)
[2021-02-12] MEDS ORDERED: ALBUTEROL SULFATE HFA 90 MCG/PUFF 8 GM INHALER IH PRN (13:30)
[2021-02-12] MEDS ORDERED: CloNIDine HCL 0.1 MG TABLET PO PRN (13:30)
[2021-02-12] MEDS ORDERED: LOPERAMIDE HCL 2 MG CAPSULE PO PRN (13:30)
[2021-02-12] MEDS ORDERED: MAGNESIUM HYDROXIDE SUSPENSION 30 ML UDCUP PO PRN (13:30)
[2021-02-12 16:07] VITALS: BP 127/70
[2021-02-12] MEDS: HALOPERIDOL 5 MG TABLET PO PRN (16:43)
[2021-02-12] MEDS: NICOTINE POLACRILEX 2 MG LOZENGE PO PRN ×2 (17:01→21:49)
[2021-02-12] MEDS: ZOLPIDEM TARTRATE 10 MG TABLET PO PRN (21:49)
[2021-02-13 04:37] VITALS: BP 130/74
[2021-02-13] MEDS: NICOTINE POLACRILEX 2 MG LOZENGE PO PRN ×3 (06:20→16:44)
[2021-02-13] MEDS: HALOPERIDOL 5 MG TABLET PO PRN ×2 (06:34→14:28)
[2021-02-13 09:10] LABS: BASOPHILS % (AUTO) 0.2 % (0.0-2.0); EOSINOPHILS % (AUTO) 2.7 % (1.0-6.0); HEMATOCRIT 41.1 % (36-46); HEMOGLOBIN 13.7 g/dL (12.0-16.0); LYMPHOCYTES # (AUTO) 2.2 K/uL (1.0-4.8); LYMPHOCYTES % (AUTO) 25.9 % (22.0-44.0); MEAN CORPUSCULAR HEMOGLOBIN 30.6 pg (26.0-34.0); MEAN CORPUSCULAR HGB CONC 33.3 G/dL (31.0-37.0); MEAN CORPUSCULAR VOLUME 92 fL (80-100); MONOCYTES # (AUTO) 0.4 K/uL (0.1-1.0); MONOCYTES % (AUTO) 4.3 % (2.0-9.0); NEUTROPHILS # (AUTO) 5.7 K/uL (1.8-7.7); NEUTROPHILS % (AUTO) 66.9 % (40.0-70.0); PLATELET COUNT (AUTO) 211 K/uL (150-450); RED BLOOD CELL COUNT(AUTO) 4.49 MIL/uL (4.00-5.20); RED CELL DISTRIBUTION WIDTH 13.8 % (11.5-14.5)
[2021-02-13] MEDS: RisperiDONE 2 MG TABLET PO SCH ×2 (09:18→20:34)
[2021-02-13 09:32] LABS: ALANINE AMINOTRANSFERASE 34 U/L (12-78); ALBUMIN 3.3 g/dL (3.4-5.0); ALKALINE PHOSPHATASE 87 U/L (46-116); ANION GAP 8 mmol/L (8-16); ASPARTATE AMINOTRANSFERASE 25 U/L (15-37); BILIRUBIN,TOTAL 0.4 mg/dL (0.1-1.0); CALCIUM, TOTAL 8.6 mg/dL (8.8-10.5); CARBON DIOXIDE 25 mmol/L (22-29); CHLORIDE 104 mmol/L (98-107); CHOL/HDL RATIO 2.6 (3.9-5.7); CHOLESTEROL 146 mg/dL (131-200); CREATININE 0.74 mg/dL (0.60-1.30); FREE T4 (FREE THYROXINE) 1.06 ng/dL (0.76-1.46); GLOMERULAR FILTR. RATE CALC > 60 mL/min (>60); GLUCOSE,RANDOM 122 mg/dL (70-110); HCG,QUANTITATIVE < 1 mIU/mL (0-6); HDL CHOLESTEROL 56 mg/dL (40-60); LDL CHOL (CALC.) 72 mg/dL (0-130); POTASSIUM 3.9 mmol/L (3.5-5.1); SODIUM SERUM 137 mmol/L (136-145); THYROID STIMULATING HORMONE 0.36 uIU/mL (0.36-3.74); TOTAL PROTEIN, SERUM 7.3 g/dL (6.4-8.2); TRIGLYCERIDES 92 mg/dL (15-150); UREA NITROGEN, BLOOD 9 mg/dL (7-18)
[2021-02-13 16:06] VITALS: BP 113/65
[2021-02-13] MEDS: ZOLPIDEM TARTRATE 10 MG TABLET PO PRN (20:34)
[2021-02-14 05:23] VITALS: BP 121/72
[2021-02-14] MEDS: RisperiDONE 2 MG TABLET PO SCH ×2 (08:09→20:28)
[2021-02-14] MEDS: NICOTINE POLACRILEX 2 MG LOZENGE PO PRN (08:09)
[2021-02-14 08:22] VITALS: BP 123/79
[2021-02-14] MEDS: HALOPERIDOL 5 MG TABLET PO PRN (08:58)
[2021-02-14] MEDS: LORazepam 2 MG TABLET PO PRN (10:18)
[2021-02-14 17:49] VITALS: BP 125/72
[2021-02-15 00:49] VITALS: BP 116/68
[2021-02-15] MEDS: NICOTINE POLACRILEX 2 MG LOZENGE PO PRN ×3 (06:05→16:05)
[2021-02-15] MEDS: RisperiDONE 2 MG TABLET PO SCH ×2 (08:20→20:32)
[2021-02-15] MEDS: LORazepam 2 MG TABLET PO PRN ×2 (08:20→16:05)
[2021-02-15 08:30] VITALS: BP 120/81
[2021-02-15] MEDS: HALOPERIDOL 5 MG TABLET PO PRN ×2 (08:47→16:05)
[2021-02-15 16:14] VITALS: BP 123/62
[2021-02-16 00:27] VITALS: BP 116/70
[2021-02-16] MEDS: NICOTINE POLACRILEX 2 MG LOZENGE PO PRN ×3 (05:45→15:57)
[2021-02-16] MEDS: RisperiDONE 2 MG TABLET PO SCH ×2 (08:02→20:39)
[2021-02-16 08:31] VITALS: BP 118/69
[2021-02-16] MEDS: LORazepam 2 MG TABLET PO PRN ×2 (10:06→15:57)
[2021-02-16] MEDS: HALOPERIDOL 5 MG TABLET PO PRN ×2 (10:53→15:57)
[2021-02-16] MEDS ORDERED: TUBERCULIN, PURIFIED PROTEIN DERIVATIVE 5 TU/0.1 ML SYRINGE ID ONE (14:00)
[2021-02-16 16:03] VITALS: BP 119/75
[2021-02-16] MEDS: ZOLPIDEM TARTRATE 10 MG TABLET PO PRN (20:40)
[2021-02-17 00:46] VITALS: BP 114/72
[2021-02-17 08:12] VITALS: BP 118/72
[2021-02-17] MEDS: RisperiDONE 2 MG TABLET PO SCH ×2 (08:23→20:35)
[2021-02-17 16:25] VITALS: BP 135/84
[2021-02-18 02:37] VITALS: BP 123/66
[2021-02-18 08:20] VITALS: BP 118/71
[2021-02-18] MEDS: RisperiDONE 2 MG TABLET PO SCH ×2 (08:27→20:28)
[2021-02-18] MEDS: NICOTINE POLACRILEX 2 MG LOZENGE PO PRN ×2 (13:07→20:28)
[2021-02-18] MEDS: LORazepam 2 MG TABLET PO PRN (13:14)
[2021-02-18 16:11] VITALS: BP 148/82
[2021-02-19 01:51] VITALS: BP 134/77
[2021-02-19] MEDS: IBUPROFEN 400 MG TABLET PO PRN (03:46)
[2021-02-19] MEDS: NICOTINE POLACRILEX 2 MG LOZENGE PO PRN ×3 (07:14→16:22)
[2021-02-19] MEDS: LORazepam 2 MG TABLET PO PRN (08:08)
[2021-02-19] MEDS: RisperiDONE 2 MG TABLET PO SCH ×2 (08:08→22:34)
[2021-02-19 08:35] VITALS: BP 112/71
[2021-02-19 16:16] VITALS: BP 121/69
[2021-02-19] MEDS: HALOPERIDOL 5 MG TABLET PO PRN (17:53)
[2021-02-20 00:05] VITALS: BP 116/72
[2021-02-20] MEDS: NICOTINE POLACRILEX 2 MG LOZENGE PO PRN ×3 (05:21→15:49)
[2021-02-20] MEDS: LORazepam 2 MG TABLET PO PRN ×2 (05:21→15:49)
[2021-02-20] MEDS: RisperiDONE 2 MG TABLET PO SCH ×2 (08:32→20:20)
[2021-02-20 08:41] VITALS: BP 111/69
[2021-02-20] MEDS: HALOPERIDOL 5 MG TABLET PO PRN (15:49)
[2021-02-20 16:23] VITALS: BP 121/68
[2021-02-21 00:27] VITALS: BP 116/63
[2021-02-21] MEDS: HALOPERIDOL 5 MG TABLET PO PRN (03:39)
[2021-02-21] MEDS: LORazepam 2 MG TABLET PO PRN (03:39)
[2021-02-21] MEDS: NICOTINE POLACRILEX 2 MG LOZENGE PO PRN ×3 (03:40→13:59)
[2021-02-21] MEDS: RisperiDONE 2 MG TABLET PO SCH ×2 (08:13→20:51)
[2021-02-21 08:42] VITALS: BP 104/65
[2021-02-21 16:21] VITALS: BP 117/70
[2021-02-21] MEDS: ACETAMINOPHEN 325 MG TABLET PO PRN (16:37)
[2021-02-22 00:33] VITALS: BP 112/65
[2021-02-22] MEDS: NICOTINE POLACRILEX 2 MG LOZENGE PO PRN ×4 (04:15→20:58)
[2021-02-22] MEDS: HALOPERIDOL 5 MG TABLET PO PRN ×2 (04:30→14:18)
[2021-02-22] MEDS: LORazepam 2 MG TABLET PO PRN (05:55)
[2021-02-22 08:48] VITALS: BP 114/70
[2021-02-22] MEDS: RisperiDONE 2 MG TABLET PO SCH ×2 (08:55→20:46)
[2021-02-22 16:31] VITALS: BP 128/65
[2021-02-23 00:26] VITALS: BP 116/74
[2021-02-23] MEDS: NICOTINE POLACRILEX 2 MG LOZENGE PO PRN ×3 (05:22→15:51)
[2021-02-23] MEDS: RisperiDONE 2 MG TABLET PO SCH ×2 (08:12→20:30)
[2021-02-23 08:34] VITALS: BP 100/64
[2021-02-23 09:00] VITALS: BP 110/84
[2021-02-23] MEDS: LORazepam 2 MG TABLET PO PRN (10:51)
[2021-02-23] MEDS ORDERED: LIDOCAINE/PF 1% 2 ML VIAL IM ONE (11:15)
[2021-02-23] MEDS: HALOPERIDOL 5 MG TABLET PO PRN (11:56)
[2021-02-23] MEDS: DOXYCYCLINE HYCLATE 100 MG TABLET PO SCH ×2 (11:56→16:14)
[2021-02-23 16:15] VITALS: BP 125/78
[2021-02-24] MEDS: NICOTINE POLACRILEX 2 MG LOZENGE PO PRN ×2 (04:04→16:10)
[2021-02-24 04:05] VITALS: BP 102/76
[2021-02-24] MEDS: DOXYCYCLINE HYCLATE 100 MG TABLET PO SCH ×2 (08:07→16:10)
[2021-02-24] MEDS: RisperiDONE 2 MG TABLET PO SCH ×2 (08:07→20:23)
[2021-02-24 08:22] VITALS: BP 114/74
[2021-02-24 08:30] LABS: COVID AG,FIA SOURCE NASAL SWAB
[2021-02-24] MEDS: LORazepam 2 MG TABLET PO PRN (08:30)
[2021-02-24 16:14] VITALS: BP 116/76
[2021-02-24 16:36] VITALS: BP 120/81
[2021-02-24] MEDS: IBUPROFEN 400 MG TABLET PO PRN (16:36)
[2021-02-25 00:30] VITALS: BP 116/72
[2021-02-25] MEDS: NICOTINE POLACRILEX 2 MG LOZENGE PO PRN ×3 (02:14→13:04)
[2021-02-25] MEDS: IBUPROFEN 400 MG TABLET PO PRN (02:37)
[2021-02-25] MEDS: LORazepam 2 MG TABLET PO PRN ×3 (04:26→14:40)
[2021-02-25] MEDS: ACETAMINOPHEN 325 MG TABLET PO PRN (05:11)
[2021-02-25 08:13] VITALS: BP 140/75
[2021-02-25] MEDS: DOXYCYCLINE HYCLATE 100 MG TABLET PO SCH ×2 (08:18→16:31)
[2021-02-25] MEDS: RisperiDONE 2 MG TABLET PO SCH ×2 (08:18→20:30)
[2021-02-25 11:00] VITALS: BP 128/74
[2021-02-25 16:21] VITALS: BP 117/66
[2021-02-26 00:08] VITALS: BP 112/63
[2021-02-26] MEDS: NICOTINE POLACRILEX 2 MG LOZENGE PO PRN ×4 (03:49→16:54)
[2021-02-26] MEDS: HALOPERIDOL 5 MG TABLET PO PRN ×3 (04:29→14:48)
[2021-02-26] MEDS: ACETAMINOPHEN 325 MG TABLET PO PRN (06:27)
[2021-02-26] MEDS: DOXYCYCLINE HYCLATE 100 MG TABLET PO SCH ×2 (08:14→16:37)
[2021-02-26] MEDS: RisperiDONE 2 MG TABLET PO SCH (08:14)
[2021-02-26 08:27] VITALS: BP 100/58
[2021-02-26] MEDS: LORazepam 2 MG TABLET PO PRN (10:42)
[2021-02-26 16:08] VITALS: BP 122/74
[2021-02-26] MEDS: ZOLPIDEM TARTRATE 10 MG TABLET PO PRN (20:58)
[2021-02-26] MEDS: RisperiDONE 4 MG TABLET PO SCH (20:59)
[2021-02-27 01:10] VITALS: BP 126/78
[2021-02-27] MEDS: NICOTINE POLACRILEX 2 MG LOZENGE PO PRN ×3 (03:39→15:53)
[2021-02-27] MEDS: LORazepam 2 MG TABLET PO PRN ×3 (04:02→16:11)
[2021-02-27] MEDS: HALOPERIDOL 5 MG TABLET PO PRN ×2 (04:52→11:31)
[2021-02-27] MEDS: RisperiDONE 2 MG TABLET PO SCH (08:17)
[2021-02-27] MEDS: DOXYCYCLINE HYCLATE 100 MG TABLET PO SCH ×2 (08:17→16:11)
[2021-02-27 08:39] VITALS: BP 121/79
[2021-02-27 16:16] VITALS: BP 128/62
[2021-02-27] MEDS: NICOTINE 21 MG/24 HOUR PATCH TD SCH (18:54)
[2021-02-27] MEDS: RisperiDONE 4 MG TABLET PO SCH (20:36)
[2021-02-28 00:41] VITALS: BP 128/74
[2021-02-28] MEDS: ZOLPIDEM TARTRATE 10 MG TABLET PO PRN ×2 (00:45→20:22)
[2021-02-28] MEDS: RisperiDONE 2 MG TABLET PO SCH (08:04)
[2021-02-28] MEDS: NICOTINE 21 MG/24 HOUR PATCH TD SCH (08:07)
[2021-02-28 09:03] VITALS: BP 126/82
[2021-02-28] MEDS ORDERED: PALIPERIDONE PALMITATE 234 MG/1.5 ML SYRINGE IM ONE (09:30)
[2021-02-28] MEDS: LORazepam 2 MG TABLET PO PRN (10:03)
[2021-02-28] MEDS: HALOPERIDOL 5 MG TABLET PO PRN (11:46)
[2021-02-28 16:14] VITALS: BP 123/78
[2021-02-28] MEDS: RisperiDONE 4 MG TABLET PO SCH (20:22)
[2021-03-01 02:20] VITALS: BP 122/70
[2021-03-01 08:20] VITALS: BP 122/76
[2021-03-01] MEDS: RisperiDONE 2 MG TABLET PO SCH (08:46)
[2021-03-01] MEDS: NICOTINE 21 MG/24 HOUR PATCH TD SCH (08:47)
[2021-03-01] MEDS: LORazepam 2 MG TABLET PO PRN (10:09)
[2021-03-01] MEDS: NICOTINE POLACRILEX 2 MG LOZENGE PO PRN ×2 (11:00→17:09)
[2021-03-01 16:16] VITALS: BP 119/81
[2021-03-01] MEDS: HALOPERIDOL 5 MG TABLET PO PRN (17:09)
[2021-03-01] MEDS: RisperiDONE 4 MG TABLET PO SCH (20:23)
[2021-03-02 01:05] VITALS: BP 112/75
[2021-03-02] MEDS: NICOTINE POLACRILEX 2 MG LOZENGE PO PRN ×3 (03:16→16:10)
[2021-03-02] MEDS: LORazepam 2 MG TABLET PO PRN ×2 (04:03→08:13)
[2021-03-02] MEDS: RisperiDONE 2 MG TABLET PO SCH (08:02)
[2021-03-02 08:17] VITALS: BP 118/71
[2021-03-02] MEDS: HALOPERIDOL 5 MG TABLET PO PRN (14:11)
[2021-03-02] MEDS: ACETAMINOPHEN 325 MG TABLET PO PRN (15:22)
[2021-03-02 16:14] VITALS: BP 102/72
[2021-03-02] MEDS: RisperiDONE 4 MG TABLET PO SCH (20:23)
[2021-03-03] MEDS: NICOTINE POLACRILEX 2 MG LOZENGE PO PRN ×3 (02:58→16:08)
[2021-03-03 03:00] VITALS: BP 110/70
[2021-03-03] MEDS: HALOPERIDOL 5 MG TABLET PO PRN (05:31)
[2021-03-03] MEDS: RisperiDONE 2 MG TABLET PO SCH (07:55)
[2021-03-03] MEDS: LORazepam 2 MG TABLET PO PRN (07:56)
[2021-03-03 08:03] LABS: COVID AG,FIA SOURCE NASAL SWAB
[2021-03-03 08:39] VITALS: BP 141/79
[2021-03-03 16:08] VITALS: BP 142/81
[2021-03-03] MEDS: RisperiDONE 4 MG TABLET PO SCH (20:47)
[2021-03-03] MEDS: ZOLPIDEM TARTRATE 10 MG TABLET PO PRN (20:48)
[2021-03-04 01:18] VITALS: BP 117/74
[2021-03-04] MEDS: NICOTINE POLACRILEX 2 MG LOZENGE PO PRN ×3 (04:53→14:34)
[2021-03-04] MEDS: LORazepam 2 MG TABLET PO PRN ×3 (05:36→16:35)
[2021-03-04 08:19] VITALS: BP 134/74
[2021-03-04] MEDS: RisperiDONE 2 MG TABLET PO SCH (08:23)
[2021-03-04] MEDS ORDERED: PALIPERIDONE PALMITATE 156 MG/ML SYRINGE IM ONE (09:00)
[2021-03-04 16:16] VITALS: BP 130/84
[2021-03-04] MEDS: HALOPERIDOL 5 MG TABLET PO PRN (16:35)
[2021-03-04] MEDS: ZOLPIDEM TARTRATE 10 MG TABLET PO PRN (20:29)
[2021-03-04] MEDS: RisperiDONE 4 MG TABLET PO SCH (20:29)
[2021-03-05 01:44] VITALS: BP 123/80
[2021-03-05] MEDS: NICOTINE POLACRILEX 2 MG LOZENGE PO PRN ×3 (03:47→17:12)
[2021-03-05] MEDS: LORazepam 2 MG TABLET PO PRN ×2 (03:47→11:59)
[2021-03-05] MEDS: RisperiDONE 2 MG TABLET PO SCH (08:04)
[2021-03-05 08:43] VITALS: BP 111/79
[2021-03-05] MEDS: HALOPERIDOL 5 MG TABLET PO PRN (14:47)
[2021-03-05 16:15] VITALS: BP 115/73
[2021-03-05] MEDS: RisperiDONE 4 MG TABLET PO SCH (20:39)
[2021-03-06 00:35] VITALS: BP 110/77
[2021-03-06] MEDS: NICOTINE POLACRILEX 2 MG LOZENGE PO PRN ×3 (03:42→15:56)
[2021-03-06] MEDS: HALOPERIDOL 5 MG TABLET PO PRN ×2 (04:39→09:16)
[2021-03-06] MEDS: RisperiDONE 2 MG TABLET PO SCH (08:10)
[2021-03-06 08:44] VITALS: BP 121/79
[2021-03-06] MEDS: LORazepam 2 MG TABLET PO PRN (09:03)
[2021-03-06] MEDS: BENZTROPINE MESYLATE 1 MG TABLET PO SCH (16:04)
[2021-03-06 16:23] VITALS: BP 120/87
[2021-03-06] MEDS: ZOLPIDEM TARTRATE 10 MG TABLET PO PRN (20:05)
[2021-03-06] MEDS: RisperiDONE 4 MG TABLET PO SCH (20:05)
[2021-03-07 00:30] VITALS: BP_SYST 12; BP_SYST 135; BP_DIAS 68; BP_DIAS 74
[2021-03-07] MEDS: NICOTINE POLACRILEX 2 MG LOZENGE PO PRN ×3 (04:26→16:51)
[2021-03-07] MEDS: HALOPERIDOL 5 MG TABLET PO PRN ×2 (05:34→13:14)
[2021-03-07] MEDS: LORazepam 2 MG TABLET PO PRN ×2 (06:26→11:51)
[2021-03-07] MEDS: RisperiDONE 2 MG TABLET PO SCH (08:07)
[2021-03-07] MEDS: BENZTROPINE MESYLATE 1 MG TABLET PO SCH ×2 (08:09→16:51)
[2021-03-07 08:31] VITALS: BP 127/64
[2021-03-07 13:24] LABS: GLUCOMETER DEV NAME(LOC) POC.BV
[2021-03-07 16:11] VITALS: BP 105/64
[2021-03-07] MEDS: RisperiDONE 4 MG TABLET PO SCH (20:36)
[2021-03-07] MEDS: ZOLPIDEM TARTRATE 10 MG TABLET PO PRN (20:37)
[2021-03-08 01:38] VITALS: BP 117/69
[2021-03-08] MEDS: NICOTINE POLACRILEX 2 MG LOZENGE PO PRN ×3 (04:20→17:15)
[2021-03-08 08:30] VITALS: BP 126/72
[2021-03-08] MEDS: BENZTROPINE MESYLATE 1 MG TABLET PO SCH ×2 (08:53→15:52)
[2021-03-08] MEDS: LORazepam 2 MG TABLET PO PRN ×2 (08:53→12:54)
[2021-03-08] MEDS: RisperiDONE 2 MG TABLET PO SCH (08:53)
[2021-03-08] MEDS: HALOPERIDOL 5 MG TABLET PO PRN ×2 (08:53→14:19)
[2021-03-08] MEDS: ACETAMINOPHEN 325 MG TABLET PO PRN (15:02)
[2021-03-08 16:19] VITALS: BP 126/80
[2021-03-08] MEDS: RisperiDONE 4 MG TABLET PO SCH (20:43)
[2021-03-09 01:51] VITALS: BP 114/77
[2021-03-09] MEDS: LORazepam 2 MG TABLET PO PRN (02:57)
[2021-03-09] MEDS: NICOTINE POLACRILEX 2 MG LOZENGE PO PRN ×2 (03:00→09:22)
[2021-03-09] MEDS: HALOPERIDOL 5 MG TABLET PO PRN (03:01)
[2021-03-09] MEDS: RisperiDONE 2 MG TABLET PO SCH (08:05)
[2021-03-09] MEDS: BENZTROPINE MESYLATE 1 MG TABLET PO SCH (08:05)
[2021-03-09] MEDS ORDERED: RISP2TAB76 PO (08:13)
[2021-03-09] MEDS ORDERED: BENZ1TAB10 PO (08:14)
[2021-03-09] MEDS ORDERED: RISP4TAB63 PO (08:14)
[2021-03-09 08:38] VITALS: BP 128/65
[2021-04-01] MEDS ORDERED: PALIPERIDONE PALMITATE 234 MG/1.5 ML SYRINGE IM SCH (09:00)
== END 2021-03-09 09:30 | DRG 750 ==
LOC: B3A 12:51
DX: F25.0 Schizoaffective disorder, bipolar type (principal); K73.9 Chronic hepatitis, unspecified; A54.9 Gonococcal infection, unspecified; F10.10 Alcohol abuse, uncomplicated; F14.10 Cocaine abuse, uncomplicated; F15.10 Other stimulant abuse, uncomplicated; K59.00 Constipation, unspecified; A74.9 Chlamydial infection, unspecified; Z20.822 Contact with and (suspected) exposure to COVID-19; Z59.00 Homelessness unspecified; Z79.899 Other long term (current) drug therapy
CPT/HCPCS: 80053; 80061; 84439; 84443; 84702; 85025; 86592; 87491; 87591; J0696; J3490; Q9967

== ENCOUNTER 2022-02-28 19:23 | Emergency (ER) | payer MEDICAID ==
[~2022-02-28] VITALS: Ht 165.1 cm; Wt 90.9 kg
[~2022-02-28 19:23] MED LIST changes: +BENZ1TAB96 PO; -BENZ2TAB10 PO; -DIVA-112 PO; -HALO5TAB2 PO; -LORA-999 PO; -QUET100T PO; -QUET300T2 PO; +RISP2TAB76 PO; +RISP4TAB63 PO
[2022-02-28 19:40] VITALS: BP 134/86
[2022-02-28 19:47] LABS: BASOPHILS % (AUTO) 0.2 % (0.0-2.0); EOSINOPHILS % (AUTO) 0.3 % (1.0-6.0); HEMATOCRIT 39.7 % (36-46); HEMOGLOBIN 13.3 g/dL (12.0-16.0); LYMPHOCYTES # (AUTO) 3.1 K/uL (1.0-4.8); LYMPHOCYTES % (AUTO) 38.3 % (22.0-44.0); MEAN CORPUSCULAR HEMOGLOBIN 32.1 pg (26.0-34.0); MEAN CORPUSCULAR HGB CONC 33.5 G/dL (31.0-37.0); MEAN CORPUSCULAR VOLUME 96 fL (80-100); MONOCYTES # (AUTO) 0.5 K/uL (0.1-1.0); MONOCYTES % (AUTO) 6.6 % (2.0-9.0); NEUTROPHILS # (AUTO) 4.5 K/uL (1.8-7.7); NEUTROPHILS % (AUTO) 54.6 % (40.0-70.0); PLATELET COUNT (AUTO) 145 K/uL (150-450); RED BLOOD CELL COUNT(AUTO) 4.14 MIL/uL (4.00-5.20); RED CELL DISTRIBUTION WIDTH 12.5 % (11.5-14.5)
[2022-02-28 19:55] LABS: ANION GAP 4 mmol/L (8-16); CARBON DIOXIDE 32 mmol/L (22-29); CHLORIDE 103 mmol/L (98-107); CREATININE 0.69 mg/dL (0.60-1.30); GLOMERULAR FILTR. RATE CALC > 60 mL/min (>60); GLUCOSE,RANDOM 90 mg/dL (70-110); POTASSIUM 4.1 mmol/L (3.5-5.1); SODIUM SERUM 139 mmol/L (136-145); UREA NITROGEN, BLOOD 8 mg/dL (7-18)
[2022-02-28 20:00] LABS: ALANINE AMINOTRANSFERASE 68 U/L (12-78); ALBUMIN 3.8 g/dL (3.4-5.0); ALKALINE PHOSPHATASE 76 U/L (46-116); ASPARTATE AMINOTRANSFERASE 43 U/L (15-37); BILIRUBIN,TOTAL 0.4 mg/dL (0.1-1.0); TOTAL PROTEIN, SERUM 7.3 g/dL (6.4-8.2)
[2022-02-28] MEDS ORDERED: LORazepam 2 MG TABLET PO ONE (21:45)
[2022-02-28] MEDS ORDERED: ACETAMINOPHEN 325 MG TABLET PO ONE (22:00)
== END 2022-03-01 02:45 | disposition left against medical advice (07) ==
LOC: EMS 20:13
DX: R45.1 Restlessness and agitation (principal); F31.9 Bipolar disorder, unspecified; F20.9 Schizophrenia, unspecified; F15.90 Other stimulant use, unspecified, uncomplicated; Z87.19 Personal history of other diseases of the digestive system; Z59.00 Homelessness unspecified
CPT/HCPCS: 99283; 80053; 85025; 36415; G0480

== ENCOUNTER 2023-12-05 20:24 | Emergency (ER) | payer MEDICAID ==
[~2023-12-05] VITALS: Ht 172.7 cm; Wt 116.8 kg
[~2023-12-05 20:24] MED LIST changes: +BENZ-247 PO; -BENZ1TAB96 PO
[2023-12-05 20:31] VITALS: BP 136/69; PULSE 81; RESP 20; TEMP 98
[2023-12-05 20:47] LABS: APPEARANCE,URINE HAZY (CLEAR); BILIRUBIN,URINE NEGATIVE (NEGATIVE); COLOR,URINE LIGHT YELLOW (YELLOW); GLUCOSE, URINE (UA) NEGATIVE (NEGATIVE); KETONES,URINE NEGATIVE (NEGATIVE); LEUKOCYTE ESTERASE ,URINE NEGATIVE (NEGATIVE); NITRATE,URINE NEGATIVE (NEGATIVE); OCCULT BLOOD,URINE NEGATIVE (NEGATIVE); PH,URINE 7.5 (5.0-8.0); PH,URINE DRUG SCREEN 7.5 (5.0-8.0); PROTEIN,URINE NEGATIVE (NEGATIVE); SPECIFIC GRAVITIY, URINE 1.011 (1.003-1.030); UROBILINOGEN,URINE <=1.0 mg/dL (<=1.0)
[2023-12-05 21:01] LABS: RBC,URINE 0-2 /HPF (0-2)
[2023-12-05 21:02] LABS: BACTERIA,URINE Moderate /HPF (None Seen); SQUAMOUS EPITHELIAL CELL,UR Few /LPF (None Seen)
[2023-12-05 21:04] LABS: BASOPHILS % (AUTO) 0.4 % (0.0-2.0); HEMATOCRIT 38.6 % (36-46); HEMOGLOBIN 12.8 g/dL (12.0-16.0); LYMPHOCYTES # (AUTO) 3.1 K/uL (1.0-4.8); LYMPHOCYTES % (AUTO) 40.5 % (22.0-44.0); MEAN CORPUSCULAR HEMOGLOBIN 30.6 pg (26.0-34.0); MEAN CORPUSCULAR HGB CONC 33.2 G/dL (31.0-37.0); MEAN CORPUSCULAR VOLUME 92 fL (80-100); MONOCYTES # (AUTO) 0.6 K/uL (0.1-1.0); MONOCYTES % (AUTO) 7.7 % (2.0-9.0); NEUTROPHILS # (AUTO) 3.8 K/uL (1.8-7.7); NEUTROPHILS % (AUTO) 48.4 % (40.0-70.0); PLATELET COUNT (AUTO) 199 K/uL (150-450); RED BLOOD CELL COUNT(AUTO) 4.18 MIL/uL (4.00-5.20); RED CELL DISTRIBUTION WIDTH 12.4 % (11.5-14.5); WHITE BLOOD COUNT (AUTO) 7.8 K/uL (4.5-11.0)
[2023-12-05 21:13] LABS: ANION GAP 5 mmol/L (8-16); CALCIUM, TOTAL 9.1 mg/dL (8.8-10.5); CARBON DIOXIDE 28 mmol/L (22-29); CHLORIDE 104 mmol/L (98-107); CREATININE 0.77 mg/dL (0.60-1.30); GLOMERULAR FILTR. RATE CALC > 60 mL/min (>60); GLUCOSE,RANDOM 100 mg/dL (70-110); POTASSIUM 3.7 mmol/L (3.5-5.1); SODIUM SERUM 137 mmol/L (136-145); UREA NITROGEN, BLOOD 11 mg/dL (7-18)
[2023-12-05 21:27] LABS: ALCOHOL, URINE DRUG SCREEN NEGATIVE (NEGATIVE); AMPHET/METH SCREEN,URINE NEGATIVE (NEGATIVE); BARBITURATE SCREEN, URINE NEGATIVE (NEGATIVE); BENZODIAZEPINES SCREEN,URINE NEGATIVE (NEGATIVE); CANNABINOID SCREEN,URINE NEGATIVE (NEGATIVE); COCAINE SCREEN,URINE NEGATIVE (NEGATIVE); METHADONE SCREEN, URINE NEGATIVE (NEGATIVE); OPIATE SCREEN,URINE NEGATIVE (NEGATIVE); PHENCYCLIDINE SCREEN,URINE NEGATIVE (NEGATIVE)
[2023-12-05 21:27] LABS: ALCOHOL, BLOOD (SERUM) < 3 mg/dL (0-10)
== END 2023-12-05 21:30 | disposition left against medical advice (07) ==
LOC: EMS 20:24
DX: F31.9 Bipolar disorder, unspecified (principal); F20.9 Schizophrenia, unspecified; F15.90 Other stimulant use, unspecified, uncomplicated; Z59.00 Homelessness unspecified
CPT/HCPCS: 99283; 80048; 81001; 85025; 36415; 87086; 87186; 80307; G0480